=== PATIENT | female | born 1955 | race Caucasian/White ===

== ENCOUNTER → 2022-08-11 | Outpatient (CLI) | payer MEDICARE, SELFPAY | END | disposition home or self-care (01) | PROVIDERS: Visit Provider Nurse Practitioner | DX: R31.0 Gross hematuria (principal) | CPT/HCPCS: 87086; 87088 ==

== ENCOUNTER → 2025-04-08 | Outpatient (CLI) | payer MEDICARE, SELFPAY ==
[2025-04-08 22:01] LABS: Absolute Lymphocyte Count 1.68 X10^3/uL (0.83-4.51); Absolute Neutrophil Count 2.9 X10^3/uL (2.0-7.7); Basophil# 0.03 X10^3/uL; Basophil% 0.6 % (0-1); Eosinophils% 1.9 % (0-5); Hematocrit 42.2 % (37-47); Lymphocyte # 1.68 X10^3/ul (0.83-4.51); Lymphocyte % 32.3 % (19-41); Mean Corp Hgb Conc 33.2 g/dL (32-36); Mean Corpuscular Hgb 30.2 pg (27.0-32.0); Mean Corpuscular Volume 90.9 fL (81-99); Mean Platelet Vol. 12.2 fl (6.2-12.0); Monocyte# 0.46 X10^3/uL; Monocyte% 8.8 % (0-10); NRBC Flagged by Analyzer 0 % (0-5); Neutrophil # 2.91 X10^3/uL (2.7-7.7); Platelet Count 205 K/mm3 (150-450); RBC Distribution Width CV 13.2 % (11.6-14.6); RBC Distribution Width SD 43.8 fl (35.1-43.9); Red Blood Count 4.64 M/mm3 (4.2-5.4); White Blood Count 5.2 K/mm3 (4.4-11.0)
[2025-04-08 23:01] LABS: ALB/GLOB Ratio 1.7 RATIO (0.9-2.4); AST(SGOT) 23 U/L (<=31); Alanine Aminotransfer ALT/SGPT 18 U/L (<=34); Albumin, Serum 4.3 g/dL (3.4-4.8); Alkaline Phosphatase 86 U/L (35-104); Anion Gap 12 (5-15); BUN 15 mg/dL (4-19); Calcium,Total 9.2 mg/dL (7.6-11.0); Carbon Dioxide 21.2 mmol/L (21.0-32.0); Chloride 105 mmol/L (98-108); Cholesterol 222 mg/dL (<=200); Creatinine, Serum 0.77 mg/dL (0.70-1.20); EST Glomerular Filtration Rate 83 (>60); Globulin 2.5 g/dL (2.2-4.2); Glucose 101 mg/dL (70-99); High Density Lipoprotein 39 mg/dL; Low Density Lipoprotein Calc. 103 mg/dL; Potassium 4.1 mmol/L (3.3-5.1); Protein, Total 6.8 g/dL (5.9-8.4); Sodium Level 139 mmol/L (133-145); Total Bilirubin 0.27 mg/dL (0.00-1.30); Triglycerides 403 mg/dL; Very Low Density Lipoprotein 81 mg/dL (5-40); cholesterol:hdl ratio screen 5.72
== END | disposition home or self-care (01) ==
LOC: OLS.AHF 04-09 14:47 → LABSPEC 04-09 14:49
PROVIDERS: Visit Provider Nurse Practitioner
DX: E78.00 Pure hypercholesterolemia, unspecified (principal); D64.9 Anemia, unspecified
CPT/HCPCS: 80053; 80061; 85025

== ENCOUNTER → 2025-09-25 | Outpatient (CLI) | payer MEDICARE, SELFPAY ==
--- OUTSIDE RECORDS SUMMARY | 2025-09-25 21:54 | XMS RPT_ITS | CCD ---
Author Organization [facility] Care Team Providers Care Cotton Baler Name Role Phone GERALDINE LEGER Attending Unavailable VIRGINIA MAJOR Primary Care Unavailable Pedrito OLIVEIRACVirginia Attending Provider Virginia Major NP Attending Unavailable Medications Completed/Discontinued Medications Medication Drug Class(es) Dates Sig (Normalized) Sig (Original) azithromycin 250 mg oral tablet (3 sources) Macrolide Antimicrobial Start: 04-08-2025 End: 04-13-2025 take 2 tablets by mouth once daily, then take 1 tablet by mouth once daily at mealtime Azithromycin 250 mg tablet Discontinued 250 mg PO daily 6 5 0 April 08, 2025 4:15pm April 12, 2025 12:00am April 13, 2025 12:11am 2 po qd for 1 day then 1 po qd for 4 days with food or after eating Start: 01-09-2025 End: 01-14-2025 take 2 tablets by mouth once daily, then take 1 tablet by mouth once daily at mealtime Azithromycin 250 mg tablet Discontinued 250 mg PO daily 6 5 0 January 09, 2025 1:00am January 13, 2025 1:00am January 14, 2025 1:11am 2 po qd for 1 day then 1 po qd for 4 days with food or after eating Start: 12-06-2024 End: 12-11-2024 take 2 tablets by mouth once daily, then take 1 tablet by mouth once daily at mealtime Azithromycin 250 mg tablet Discontinued 250 mg PO daily 6 5 0 December 06, 2024 1:00am December 10, 2024 1:00am December 11, 2024 1:08am 2 po qd for 1 day then 1 po qd for 4 days with food or after eating ciprofloxacin 500 mg oral tablet (4 sources) Quinolone Antimicrobial Start: 08-11-2022 End: 12-06-2024 take 1 tablet by mouth twice daily Ciprofloxacin Hcl (Cipro) 500 mg tablet Discontinued 500 mg PO TWICE A DAY 14 0 August 11, 2022 12:00am December 06, 2024 5:06pm Start: 01-17-2019 End: 02-06-2020 take 1 tablet by mouth twice daily Ciprofloxacin Hcl (Cipro) 500 mg tablet Discontinued 500 mg PO TWICE A DAY 14 0 January 17, 2019 1:00am February 06, 2020 3:56pm clarithromycin 500 mg oral tablet (2 sources) Macrolide Antimicrobial Start: 11-26-2021 End: 08-11-2022 take 1 tablet by mouth twice daily Clarithromycin 500 mg tablet Discontinued 500 mg PO TWICE A DAY 20 0 November 26, 2021 1:00am August 11, 2022 4:48pm Problems Problem Classification Problem Date Documented Da te Episodic/Chronic Chronic obstructive pulmonary disease and bronchiectasis (1 source) Bronchitis; Translations: [Bronchitis, not specified as acute or chronic] 01-09-2025 Episodic Deficiency and other anemia (1 source) Anemia; Translations: [Anemia, unspecified] 04-08-2025 Episodic Disorders of lipid metabolism (2 sources) Increased cholesterol esters; Translations: [Pure hypercholesterolemi a, unspecified] Onset: 06-12-2025 04-08-2025 Chronic Essential hypertension (1 source) Essential (primary) hypertension; Translations: [Hypertension, unspecified type] Onset: 06-10-2025 Chronic Genitourinary symptoms and ill-defined conditions (2 sources) Kiran hematuria; Translations: [Gross hematuria] 01-17-2019 Episodic Other ear and sense organ disorders (2 sources) Pain of ear structure; Translations: [Otalgia, unspecified ear] 12-10-2021 Episodic Other ear and sense organ disorders (3 sources) Impacted cerumen; Translations: [Impacted cerumen, bilateral] 12-06-2024 Episodic Other injuries and conditions due to external causes (1 source) Unspecified injury of head, initial encounter; Translations: [Closed head injury, initial encounter] Onset: 06-10-2025 Episodic Other lower respiratory disease (2 sources) Cough; Translations: [Cough] 02-06-2020 Episodic Other upper respiratory infections (4 sources) Acute maxillary sinusitis; Translations: [Acute maxillary sinusitis, unspecified] 04-10-2025 Episodic Otitis media and related conditions (2 sources) Acute right otitis media; Translations: [Otitis media, unspecified, right ear] 12-06-2024 Episodic Skull and face fractures (1 source) Fracture of nasal bones, initial encounter for closed fracture; Translations: [Closed fracture of nasal bone, initial encounter] Onset: 06-10-2025 Episodic Urinary tract infections (2 sources) Cystitis; Translations: [Cystitis, unspecified without hematuria] 01-17-2019 Episodic Results Test Name Value Interpretation Reference Range Facility [facility] 06-10-2025 [facility] HNO ID: [id number] Author: MARLEEN MAURO RT(R) Service: Radiology Author Type: Technologist Type: Allied Health Filed: 06/10/2025 11:26 Note Text: Radiology Service Progress Note PATIENT NAME: Giovana Garland DATE OF SERVICE: June 10, 2025 TIME: 11:25 AM PATIENT IDENTITY VERIFICATION COMPLETED USING TWO (2) IDENTIFIERS: Name and Date of confirmed by patient verbally. FALL SCREENING: Has the patient had 2 falls in the last year or 1 fall with injury or currently using an Ambulatory Assistive Device (Walker, Cane, Wheelchair, Crutches, etc.)? Emergency Room Patient: Screened in ED PATIENT GENDER DATA: Assigned female at . status: : No status: NO. PATIENT RELEVANT IMPLANT DATA REVIEWED: Yes PATIENT PRESENTS WITH AN IMPLANTABLE OR ATTACHED WEB CONTENT & SOCIAL MEDIA MANAGER: No RADIOLOGY DEPARTMENT: CT; Exam(s) Completed: Brain , Face/Mandible, and Spine PERIPHERAL IV DATA: Not applicable SIGNED BY: Marleen Mauro RT(R) June 10, 2025 11:25 AM Normal [facility] CT BRAIN WO IVCONon 06-10-20 CT BRAIN WO IVCON * * *Final Report* * * DATE OF EXAM: Jun 10 2025 11:23AM [facility] 0504 - CT BRAIN WO IVCON / PROCEDURE REASON: Head trauma, moderate-severe * * * * Physician Interpretation * * * * EXAMINATION: CT BRAIN WO IVCON CLINICAL HISTORY: Fall, trauma TECHNIQUE: Serial axial images without IV contrast were obtained from the vertex to the foramen magnum. MQ: CTBWO_3 CT Radiation dose: Integrated Dose-Length Product (DLP) for this visit = 707.24 mGy*cm CT Dose Reduction Employed: No dose reduction techniques were required COMPARISON: None. RESULT: Localizer images: No additional findings. Post-operative change: None. Acute change: No evidence of an acute infarct or other acute parenchymal process. Hemorrhage: No evidence of acute intracranial hemorrhage. ECASS hemorrhagic transformation score: Not Applicable Mass Lesion / Mass Effect: There is no evidence of an intracranial mass or extraaxial fluid collection. No significant mass effect. Chronic change: None apparent. Parenchyma: There is no significant volume loss. The brain parenchyma is otherwise within normal limits for age. Ventricles: The ventricles are within normal limits of size and configuration for age. Paranasal sinuses and skull base: The visualized paranasal sinuses are grossly clear. The skull base and imaged soft tissues are unremarkable. IMPRESSION: No evidence of acute intracranial process. Security Delivery Specialist: [facility] Transcribe Date/Time: Jun 10 2025 11:24A Dictated by : BOB CHIN MD This examination was interpreted and the report reviewed and electronically signed by: BOB CHIN MD on Jun 10 2025 11:30AM EST [id number] Normal [facility] CT CERVICAL SPINE WO IVCONon 06-10-2025 CT CERVICAL SPINE WO IVCON * * *Final Report* * * DATE OF EXAM: Jun 10 2025 11:23AM [facility] 0505 - CT CERVICAL SPINE WO IVCON / PROCEDURE REASON: Neck trauma (Age >= 65y) * * * * Physician Interpretation * * * * EXAMINATION: CT CERVICAL SPINE WO IVCON CLINICAL HISTORY: Neck trauma (Age >= 65y) TECHNIQUE: Spiral, high resolution axial unenhanced images were obtained from the skull base to the cervicothoracic junction with sagittal and coronal planar reconstructions. MQ: CTCSPWO_5 CT Radiation dose: Integrated CT Dose-Length Product (DLP) for this visit = 190.39 mGy*cm CT Dose Reduction Employed: Automated exposure control(AEC) and iterative recon COMPARISON: None. RESULT: Counting reference: Craniocervical junction. Anatomic Variants: None. Performance Test Consultant (topogram) images: Alignment: Minimal retrolisthesis of C4 on C5 and C5 on C6. Minimal anterior listhesis of C7 on T1. These are all likely degenerative. Craniocervical junction: Craniocervical junction is normal. Osseous structures/fracture: No evidence of a lytic or blastic process in the visualized spine. No evidence of acute or chronic fracture. Cervical soft tissues: The paraspinal soft tissues are within normal limits. Degenerative changes: Severe disc space narrowing C4-C5, C5-C6 and C6-C7 levels. Multilevel facet joint degenerative changes. IMPRESSION: No fracture or dislocation. Multilevel degenerative changes as detailed. Anatomic Variant: None. Assume 7 cervical vertebrae with counting from the craniocervical junction. Security Delivery Specialist: [facility] Transcribe Date/Time: Jun 10 2025 11:30A Dictated by : BOB CHIN MD This examination was interpreted and the report reviewed and electronically signed by: BOB CHIN MD on Jun 10 2025 11:48AM EST [id number] Normal [facility] CT FACIAL BONE/STU WO IVCON on 06-10-2025 CT FACIAL BONE/STU WO IVCON * * *Final Report* * * DATE OF EXAM: Jun 10 2025 11:23AM [facility] 0507 - CT FACIAL BONE/STU WO IVCON / PROCEDURE REASON: Nasal fracture suspected * * * * Physician Interpretation * * * * EXAMINATION: CT FACIAL BONE/STU WO IVCON CLINICAL HISTORY: Nasal fracture suspected. Technique: Spiral high resolution axial unenhanced images were obtained through the facial bones with sagittal and coronal planar reconstructions. MQ: CTMFWO_1 CT Radiation dose: Integrated Dose-Length Product (DLP) for this visit = 380.17 mGy*cm. CT Dose Reduction Employed: Automated exposure control(AEC) and iterative recon COMPARISON: None. RESULT: Localizer images: No additional findings. Soft Tissues: Soft tissue edema along the nose. Right nasal piercing. Facial bones: Subtle cortical buckling of the nasal bone (604:48) could represent nondisplaced fracture or healed remote fracture. Orbits: No evidence of an acute fracture. The globes are intact. The soft tissue planes of the orbits are maintained. Paranasal Sinuses: Trace fluid in the dependent portion of both maxillary sinuses. Foreign Bodies: No evidence of radiopaque foreign bodies. Other: No evidence of a remote fracture. No lytic or blastic process seen in the facial bones. IMPRESSION: Soft tissue edema along the nose. Subtle cortical buckling along the nasal bone may represent nondisplaced fracture versus remote healed fracture. Security Delivery Specialist: TATI Transcribe Date/Time: Jun 10 2025 11:37A Dictated by : BOB CHIN MD This examination was interpreted and the report reviewed and electronically signed by: BOB CHIN MD on Jun 10 2025 11:47AM EST [id number] [facility] ED NOTEon 06-10-2025 ED NOTE HNO ID: [id number] Author: DORI MARTE RN Service: Emergency Medicine Author Type: Registered Nurse Type: ED Notes Filed: 06/11/2025 13:08 Note Text: Emergency Services: ED Call Back Questionnaire SERVICE DATE: 06/10/2025 Are you feeling better? Yes Any questions about discharge instructions and follow-up care? No Were you able to make a follow up appointment? No, referred to appointment hotline Do you have any further questions? No Is there anything that we could have done differently to improve your ED visit? No SIGNATURE: Dori Marte RN PATIENT NAME: Giovana Garland DATE: June 11, 2025 TIME: 1:08 PM [facility] ED NOTE HNO ID: [id number] Author: MARILEE WOOTEN RN Service: Emergency Medicine Author Type: Registered Nurse Type: ED Notes Filed: 06/10/2025 11:46 Note Text: Pt given PO fluid, reported off to Eliza MARTINEZ. [facility] ED PROV NOTEon 06-10-2025 ED PROV NOTE HNO ID: [id number] Author: GERALDINE LEGER MD Service: Emergency Medicine Author Type: Physician Type: ED Provider Notes Filed: 06/10/2025 13:04 Note Text: ED Provider Note Patient Name: Giovana Garland : 1955 SERVICE DATE: 06/10/25 History Patient presents with: Fall Nose Injury Patient is a 70-year-old female presenting to the emergency room for evaluation of fall and facial trauma. States that when she was getting up this morning she developed a cramp in her right calf. She typically gets these during the summer when she is out mowing, and has been treating them with luiz massage therapy and she was supposed to have an appointment with her masseuse today. When she got out of bed to help relieve the cramp she collapsed, falling and hitting her nose on the chair on the way down. She did not lose consciousness, but thinks that she instead had difficulty with her balance due to the cramp and coming down on a quilt. No chest pain or pressure. No dizziness or lightheadedness. Had bleeding from her nose that stopped after about 30 minutes. She has a headache, described as frontal. No difficulty with speech, swallowing, vision or double vision. No focal numbness or weakness. No blood thinners. She did take some Motrin for her pain. Pain is tolerable at this time though is noted by the patient. No other injuries and full range of motion of all of her other joints. No neck pain or stiffness. Denies other acute sick symptoms. She does note that her calf cramp is entirely resolved at this time. History reviewed. No pertinent past medical history. PAST SURGICAL HISTORY Procedure Laterality Date ORTHOPEDICS SURGERY HX No family history on file. Social History Tobacco Use Smoking status: Never Smokeless tobacco: Not on file Substance and Sexual Activity Alcohol use: Yes Drug use: Never Sexual activity: Not on file ALLERGIES No Known Allergies Review of Systems Constitutional: Negative for activity change, chills and fever. HENT: Positive for nosebleeds. Negative for dental problem, drooling, ear discharge, ear pain, trouble swallowing and voice change. Pain at the bridge of her nose Eyes: Negative for pain and discharge. Respiratory: Negative for cough and shortness of breath. Cardiovascular: Negative for chest pain and palpitations. Gastrointestinal: Negative for abdominal pain, diarrhea, nausea and vomiting. Genitourinary: Negative for dysuria and flank pain. Musculoskeletal: Negative for back pain and neck pain. Right calf spasm since resolved Skin: Negative for color change, rash and wound. Neurological: Positive for headaches. Negative for dizziness, seizures, syncope, weakness and numbness. Psychiatric/Behavioral : Negative for self-injury and suicidal ideas. Physical Exam Vitals [06/10/25 1033] BP Pulse Temp Temp src Resp SpO2 Weight Height 188/91 87 (!) 35.7 ?C (96.2 ?F) -- 20 99 % 61.2 kg (135 lb) -- Physical Exam Vitals and nursing note reviewed. Constitutional: General: She is not in acute distress. Appearance: She is well-developed. She is not diaphoretic. HENT: Head: Normocephalic. Comments: Bruising and mild swelling to the bridge of patient's nose. No septal hematoma. No hemotympanum. No midface instability. Small amount of dried blood in bilateral naris, with no active epistaxis Right Ear: Tympanic membrane and external ear normal. Left Ear: Tympanic membrane and external ear normal. Nose: Nose normal. Mouth/Throat: Mouth: Mucous membranes are moist. Pharynx: No oropharyngeal exudate or posterior oropharyngeal erythema. Comments: No posterior oropharynx swelling or exudate. Uvula midline without edema. No drooling or dysphonia. No woody induration underneath the tongue. Tongue is midline without elevation. Eyes: General: No scleral icterus. Right eye: No discharge. Left eye: No discharge. Pupils: Pupils are equal, round, and reactive to light. Neck: Comments: No midline C-spine tenderness to palpation. No crepitus deformity or step-offs Cardiovascular: Rate and Rhythm: Normal rate and regular rhythm. Heart sounds: Normal heart sounds. No murmur heard. No friction rub. No gallop. Pulmonary: Effort: Pulmonary effort is normal. No respiratory distress. Breath sounds: Normal breath sounds. No stridor. No wheezing or rales. Chest: Chest wall: No tenderness. Abdominal: Palpations: Abdomen is soft. Tenderness: There is no abdominal tenderness. There is no guarding. Musculoskeletal: General: No tenderness or deformity. Normal range of motion. Cervical back: Normal range of motion and neck supple. Skin: General: Skin is warm and dry. Capillary Refill: Capillary refill takes less than 2 seconds. Findings: No rash. Neurological: General: No focal deficit present. Mental Status: She is alert and oriented to person, place, and time. Cranial Nerves: No cranial nerve defici (more content not included)... Normal [facility] Absolute lymphocyte countOrd ered By: Virginia Major on 04-08-2025 Lymphocytes Auto (Unsp spec) [#/Vol] 1.68 10*3/uL 0.83-4.51 [facility] Absolute neutrophil countOrd ered By: Virginia Major on 04-08-2025 Neutrophils (Bld) [#/Vol] 2.9 10*3/uL 2.0-7.7 [facility] Anion gap in Serum or Plasma Ordered By: Virginia Major on 04-08-2025 Anion gap [Moles/Vol] 12 mmol/L 5-15 [facility] Automated lymphocyte count a s percentage of total leukocytesOrdered By: Virginia Major on 04-08-2025 Lymphocytes/100 WBC Auto (Unsp spec) 32.3 % 19-41 [facility] BUN/creatinine ratioOrdered By: Virginia Major on 04-08-2025 Urea nitrogen/Creatinine [Mass ratio] 20.0 mg/mg 10-20 [facility] Basophil percentageOrdered B y: Vriginia Major on 04-08-2025 Basophils/100 WBC (Bld) 0.6 % 0-1 [facility] Bilirubin, totalOrdered By: Virginia Major on 04-08-2025 Bilirubin [Mass/Vol] 0.27 mg/dL 0.00-1.30 [facility] Calculated very low density lipoprotein (VLDL) cholesterol measurementOrdered By: Virginia Major on 04-08-2025 Calculated very low density lipoprotein (VLDL) cholesterol measurement 81 mg/dL High 5-40 [facility] Carbon dioxide, total [Moles /volume] in Central venous bloodOrdered By: Virginia Major on 04-08-2025 CO2 [Moles/Vol] 21.2 mmol/L 21.0-32.0 [facility] Chloride assayOrdered By: Do ra Major on 04-08-2025 Chloride [Moles/Vol] 105 mmol/L 98-108 [facility] Eosinophil percentageOrdered By: Virginia Major on 04-08-2025 Eosinophils/100 WBC (Bld) 1.9 % 0-5 [facility] Erythrocyte distribution wid th ratioOrdered By: Virginia Major on 04-08-2025 Erythrocyte distribution width (RBC) [Ratio] 13.2 % 11.6-14.6 [facility] Erythrocyte distribution wid th standard deviationOrdered By: Virginia Major on 04-08-2025 Erythrocyte distribution width (RBC) [Ratio] 43.8 fl 35.1-43.9 [facility] Glomerular filtration rate ( GFR) estimation/1.73 sq m using serum, plasma, or whole bOrdered By: Virginia Major on 04-08-2025 GFR/1.73 sq M.predicted among non-blacks MDRD (S/P/Bld) [Vol rate/Area] 83 mL/min/{1.73_m2} >60 [facility] Comment on above: mL/min/1.73m2 CKD-EP I Creatinine Equation (2020) Hematocrit Auto (Bld) [Volum e fraction]Ordered By: Virginia Major on 04-08-2025 Hematocrit (Bld) [Volume fraction] 42.2 % 37-47 [facility] Hemoglobin measurementOrdere d By: Virginia Major on 04-08-2025 Hemoglobin (Bld) [Mass/Vol] 14.0 g/dL 12.0-15.0 [facility] Immature granulocytes/100 WB C Auto (Bld)Ordered By: Virginia Major on 04-08-2025 Immature granulocytes/100 WBC (Bld) 0.400 % 0.0-0.9 [facility] Comment on above: IG% - Immature Granu locytes (promyelocytes, myelocytes and metamyelocytes) > 1% indicates that a LEFT SHIFT is Present. LDL calc ser/plasOrdered By: Virginia Major on 04-08-2025 Cholesterol in LDL [Mass/Vol] 103 mg/dL [facility] Comment on above: Jqcgmkclvi=732-568 m g/dL & Higher Nfko=506 mg/dL or greater Laboratory - Chemistry and C hemistry - challengeOrdered By: Virginia Major on 04-08-2025 AST [Catalytic activity/Vol] 23 U/L <32 [facility] MCV (mean corpuscular volume ) determinationOrdered By: Virginia Major on 04-08-2025 MCV (RBC) [Entitic vol] 90.9 fL 81-99 [facility] Mean corpuscular hemoglobin (MCH) determinationOrdered By: Virginia Major on 04-08-2025 MCH (RBC) [Entitic mass] 30.2 pg 27.0-32.0 [facility] Mean corpuscular hemoglobin concentration (MCHC) determinationOrdered By: Virginia Major on 04-08-2025 MCHC (RBC) [Mass/Vol] 33.2 g/dL 32-36 [facility] Mean platelet volume determi nationOrdered By: Virginia Major on 04-08-2025 Platelet mean volume (Bld) [Entitic vol] 12.2 fL High 6.2-12.0 [facility] Monocyte percentageOrdered B y: Virginia Major on 04-08-2025 Monocytes/100 WBC (Bld) 8.8 % 0-10 [facility] Neutrophil percentageOrdered By: Virginia Major on 04-08-2025 Neutrophils/100 WBC (Bld) 56.0 % 47-70 [facility] Nucleated red blood cell per centageOrdered By: Virginia Major on 04-08-2025 Nucleated RBC/100 WBC (Bld) [Ratio] 0 % 0-5 [facility] Platelet countOrdered By: Do ra Major on 04-08-2025 Platelets (Bld) [#/Vol] 205 10*3/uL 150-450 [facility] Potassium measurement (mass/ volume)Ordered By: Virginia Major on 04-08-2025 Potassium (Unsp spec) [Mass/Vol] 4.1 mmol/L 3.3-5.1 [facility] RBC Auto (Bld) [#/Vol]Ordere d By: Virginia Major on 04-08-2025 RBC (Bld) [#/Vol] 4.64 10*6/uL 4.2-5.4 [facility] Screening total cholesterol/ high density lipoprotein (HDL) cholesterol ratioOrdered By: Virginia Major on 04-08-2025 Cholesterol.total/Choles terol in HDL [Mass ratio] 5.72 {ratio} [facility] Serum creatinine measurement (mass/volume)Ordered By: Virginia Major on 04-08-2025 Creatinine [Mass/Vol] 0.77 mg/dL 0.70-1.20 [facility] Serum globulin measurementOr dered By: Virginia Major on 04-08-2025 Globulin (S) [Mass/Vol] 2.5 g/dL 2.2-4.2 [facility] Serum glucose measurement (m ass/volume)Ordered By: Virginia Major on 04-08-2025 Glucose [Mass/Vol] 101 mg/dL High 70-99 [facility] Serum or plasma alanine sparks otransferase (ALT) measurementOrdered By: Virginia Major on 04-08-2025 ALT [Catalytic activity/Vol] 18 U/L <35 [facility] Serum or plasma albumin neeta urement (mass/volume)Ordered By: Virginia Major on 04-08-2025 Albumin [Mass/Vol] 4.3 g/dL 3.4-4.8 [facility] Serum or plasma albumin/glob ulin mass ratioOrdered By: Virginia Major on 04-08-2025 Albumin/Globulin [Mass ratio] 1.7 {ratio} 0.9-2.4 [facility] Serum or plasma alkaline simone sphatase measurementOrdered By: Virginia Major on 04-08-2025 ALP [Catalytic activity/Vol] 86 U/L 35-104 [facility] Serum or plasma calcium neeta urement (mass/volume)Ordered By: Virginia Major on 04-08-2025 Calcium [Mass/Vol] 9.2 mg/dL 7.6-11.0 [facility] Serum or plasma cholesterol in HDL measurement (mass/volume)Ordered By: Virginia Major on 04-08-2025 Cholesterol in HDL [Mass/Vol] 39 mg/dL Low >40 [facility] Comment on above: National Cholesterol Education Program (NCEP) guidelines:<40 mg/dL: Low HDL-cholesterol (major risk factor for CHD)>= 60 mg/dL: High HDL-cholesterol (negative risk factor for CHD)HDL-cholesterol is affected by a number of factors, e.g. smoking, exercise, hormones, sex and age. Serum or plasma cholesterol measurement (mass/volume)Ordered By: Virginia Major on 04-08-2025 Cholesterol [Mass/Vol] 222 mg/dL High <201 [facility] Comment on above: Cholesterol level, D esirable <200 mg/dLBorderline high cholesterol 200-239 mg/dLHigh cholesterol >=240 mg/dLRecommendations of the NCEP Adult Treatment Panel for the following risk-cutoff thresholds for the [place] population. Serum or plasma urea nitroge n measurement (mass/volume)Ordered By: Virginia Major on 04-08-2025 Urea nitrogen [Mass/Vol] 15 mg/dL 4-19 [facility] Sodium levelOrdered By: Virginia Major on 05-27-2025 Sodium [Moles/Vol] 139 mmol/L 133-145 [facility] Total proteinOrdered By: Jose Major on 04-08-2025 Protein [Mass/Vol] 6.8 g/dL 5.9-8.4 [facility] Triglycerides measurementOrd ered By: Virginia Major on 04-08-2025 Triglyceride [Mass/Vol] 403 mg/dL High <199 [facility] Comment on above: The drugs N-Acetylcy steine and Metamizole may falsely depress this assay. Normal range: <150 mg/dLBorderline High: 150-199 mg/dLHigh: 200-499 mg/dLVery High: >500 mg/dL White blood cell (WBC) count Ordered By: Virginia Major on 04-08-2025 WBC (Bld) [#/Vol] 5.2 10*3/uL 4.4-11.0 [facility] Laboratory - Chemistry and C hemistry - challengeon 08-11-2022 Bilirubin Ql (U) Negative [facility] Work Phone: Ketones Ql (U) Negative [facility] Work Phone: pH (U) 5.5 [pH] [facility] Work Phone: Specific gravity (U) [Rel density] 1.010 [facility] Work Phone: Urobilinogen (U) [Mass/Vol] 0.1191886 mg/dL [facility] Work Phone: Laboratory - Hematology and Cell countson 08-11-2022 Hemoglobin Ql (U) Large [facility] Work Phone: Laboratory - Specimen inform ationon 08-11-2022 Clarity (U) Clear [facility] Work Phone: Color (U) RED [facility] Work Phone: Laboratory - Urinalysison Nitrite Ql (U) Negative [facility] Work Phone: Protein Ql (U) 2+ [facility] Work Phone: No Panel Informationon 08-11 Urine Leukocytes Positive [facility] Work Phone: Urine Non-Hemolyzed Blood [facility] Work Phone: Factor V Leiden PCRon 2017 FV Leiden Report Normal [facility] Comment on above: Result Comment: (NOT E) Performing Pathologist: Price Maravilla M.D. Factor V Leiden MutationResult: NORMAL Interpretation: The patient is negative for the Factor VLeiden, the Arginine 506/Glutamine 506 genetic polymorphism. The Factor VLeiden assay may fail to detect less than 5% of individuals with activatedprotein C resistance who do not have the Arginine 506/Glutamine 506 pointmutation.This may be detected by ordering the functional assay for ActivatedProtein C Resistance. Other causes of thromboembolic disease are not ruled outby a normal Factor V Leiden result. Method: This assay was performed bypolymerase chain reaction and fluorescence monitoring using hybridizationprobes. Performed By: #### C BCDIF, BMP, FIBCT, PT, PTT ####[facility] [id number] [place] [address] [phone] APTTon 12-12-2017 aPTT 28.2 s Normal 23.0-32.4 [facility] Comment on above: Performed By: #### C BCDIF, BMP, FIBCT, PT, PTT ####[address] [phone] Basic Metabolic Panlon 12-12 Anion gap 14 mmol/L Normal 9-18 [facility] Comment on above: Performed By: #### C BCDIF, BMP, FIBCT, PT, PTT ####[address] [phone] Calcium 9.5 mg/dL Normal 8.5-10.2 [facility] Comment on above: Performed By: #### C BCDIF, BMP, FIBCT, PT, PTT ####[facility] [id number] [place] [address] [phone] Chloride 102 mmol/L Normal 97-105 [facility] Comment on above: Performed By: #### C BCDIF, BMP, FIBCT, PT, PTT ####[place] [phone] CO2 25 mmol/L Normal 22-30 [facility] Comment on above: Performed By: #### C BCDIF, BMP, FIBCT, PT, PTT ####[place] [phone] Creatinine 0.83 mg/dL Normal 0.58-0.96 [facility] Comment on above: Performed By: #### C BCDIF, BMP, FIBCT, PT, PTT ####[place] [phone] eGFR (non-black) mL/min/{1.73_m2} Normal [facility] Comment on above: Performed By: #### C BCDIF, BMP, FIBCT, PT, PTT ####[place] [phone] Glucose mass conc 99 mg/dL Normal 74-99 [facility] Comment on above: Performed By: #### C BCDIF, BMP, FIBCT, PT, PTT ####[place] [phone] Potassium molar conc 4.2 mmol/L Normal 3.7-5.1 [facility] Comment on above: Performed By: #### C BCDIF, BMP, FIBCT, PT, PTT ####[place] [phone] Sodium 141 mmol/L Normal 136-144 [facility] Comment on above: Performed By: #### C BCDIF, BMP, FIBCT, PT, PTT ####[address], [place] [phone] Urea nitrogen 9 mg/dL Normal 7-21 [facility] Comment on above: Performed By: #### C BCDIF, BMP, FIBCT, PT, PTT ####[address] [place] [place] [phone] CBC and Differentialon 12-12 Abs Baso 0.03 k/uL Normal <0.11 [facility] Comment on above: Performed By: #### C BCDIF, BMP, FIBCT, PT, PTT ####[phone] Abs Vigo 0.35 k/uL Normal <0.87 [facility] Comment on above: Performed By: #### C BCDIF, BMP, FIBCT, PT, PTT ####[phone] Abs Neut 2.66 k/uL Normal 1.45-7.50 [facility] Comment on above: Performed By: #### C BCDIF, BMP, FIBCT, PT, PTT ####[place] [phone] Basophils/100 WBC Auto (Bld) 0.7 % Normal [facility] Comment on above: Performed By: #### C BCDIF, BMP, FIBCT, PT, PTT ####[address] [place] [phone] DTYPE ADIFF Normal [facility] Comment on above: Performed By: #### C BCDIF, BMP, FIBCT, PT, PTT ####[address] [place] [phone] Eosinophils 0.10 10*3/uL Normal <0.46 [facility] Comment on above: Performed By: #### C BCDIF, BMP, FIBCT, PT, PTT ####[facility] [address] [place] [phone] Eosinophils/100 leukocytes 2.3 % Normal [facility] Comment on above: Performed By: #### C BCDIF, BMP, FIBCT, PT, PTT ####[facility] [address] [place] [phone] Erythrocyte distribution width Auto Ratio (RBC) 12.5 % Normal 11.5-15.0 [facility] Comment on above: Performed By: #### C BCDIF, BMP, FIBCT, PT, PTT ####[place] [address] [address] [place] [phone] Erythrocytes (RBC) 4.82 10*6/uL Normal 3.90-5.20 [facility] Comment on above: Performed By: #### C BCDIF, BMP, FIBCT, PT, PTT ####[place] [address] [address] [place] [phone] Erythrocytes (RBC) 10*6/uL Normal <0.01 [facility] Lab Comment on above: Performed By: #### C BCDIF, BMP, FIBCT, PT, PTT ####[place] [address] [address] [place] [phone] Erythrocytes (RBC) 0.0 /[address] [facility] Comment on above: Performed By: #### C BCDIF, BMP, FIBCT, PT, PTT ####[facility] [address] [place] [phone] Hematocrit (HCT) 45.2 % Normal 36.0-46.0 [facility] Comment on above: Performed By: #### C BCDIF, BMP, FIBCT, PT, PTT ####[facility] [id number]ic[address] [place] [phone] Hemoglobin mass conc (Bld) 14.6 g/dL Normal 11.5-15.5 [facility] Comment on above: Performed By: #### C BCDIF, BMP, FIBCT, PT, PTT ####[phone] Lymphocytes 1.17 10*3/uL Normal 1.00-4.00 [facility] Comment on above: Performed By: #### C BCDIF, BMP, FIBCT, PT, PTT ####[address] [place] [phone] Lymphocytes/100 leukocytes 27.1 % Normal [facility] Comment on above: Performed By: #### C BCDIF, BMP, FIBCT, PT, PTT ####[phone] MCH 30.3 pG Normal 26.0-34.0 [facility] Comment on above: Performed By: #### C BCDIF, BMP, FIBCT, PT, PTT ####[phone] MCHC mass conc (RBC) 32.3 g/dL Normal 30.5-36.0 [facility] Comment on above: Performed By: #### C BCDIF, BMP, FIBCT, PT, PTT ####[address] [place] [phone] MCV 93.8 fL Normal 80.0-100.0 [facility] Comment on above: Performed By: #### C BCDIF, BMP, FIBCT, PT, PTT ####[place] [address] [address] [place] [phone] Monocytes/100 leukocytes 8.1 % Normal [facility] Comment on above: Performed By: #### C BCDIF, BMP, FIBCT, PT, PTT ####[address] [place], [place] [phone] Neutrophils/100 WBC Auto (Bld) 61.8 % Normal [facility] Comment on above: Performed By: #### C BCDIF, BMP, FIBCT, PT, PTT ####[address] [place], [place] [phone] Platelet mean volume (PMV) 11.0 fL Normal 9.0-12.7 [facility] Comment on above: Performed By: #### C BCDIF, BMP, FIBCT, PT, PTT ####[address] [phone] Platelets 197 10*3/uL Normal 150-400 [facility] Comment on above: Performed By: #### C BCDIF, BMP, FIBCT, PT, PTT ####[address] [phone] WBC (Leukocytes) 4.32 10*3/uL Normal 3.70-11.00 [facility] Comment on above: Performed By: #### C BCDIF, BMP, FIBCT, PT, PTT ####[address] [phone] Fibrinogenon 12-12-2017 Fibrinogen 266 mg/dL Normal 200-400 [facility] Comment on above: Performed By: #### C BCDIF, BMP, FIBCT, PT, PTT ####[address] [phone] Protimeon 12-12-2017 INR Coag RelTime (PPP) 1.0 {INR} Normal 0.9-1.3 [facility] Comment on above: Performed By: #### C BCDIF, BMP, FIBCT, PT, PTT ####[address] [place] [phone] PT Sec 9.9 sec Normal 9.7-13.0 [facility] Comment on above: Performed By: #### C BCDIF, BMP, FIBCT, PT, PTT ####[facility] [id number] [place], [place] [phone] Culture, urine Bacteria identified Cx Nom (U) Mixed Gram Pos & Gram Neg Org [facility] Work Phone: Vital Signs Date Time Vital Sign Value Performing Clinician Faci lity 04-08-2025 16:16-0400 Body height 158.75 cm Virginia Major AUTOMATION MANAGER-C Work Phone: [facility] 04-08-2025 16:16-0400 Body mass index (BMI) [Ratio] 26.4 kg/m2 Virginia Major AUTOMATION MANAGER-C Work Phone: [facility] 04-08-2025 16:16-0400 Body temperature 97.7 [degF] Virginia Major AUTOMATION MANAGER-C Work Phone: [facility] 04-08-2025 16:16-0400 Body weight 66.67 kg Virginia Major AUTOMATION MANAGER-C Work Phone: [facility] 04-08-2025 16:16-0400 Diastolic blood pressure 60 mm[Hg] Virginia Major AUTOMATION MANAGER-C Work Phone: [facility] 04-08-2025 16:16-0400 Heart rate 68 /min Virginia Major AUTOMATION MANAGER-C Work Phone: [facility] 04-08-2025 16:16-0400 Respiratory rate 18 /min Virginia Major AUTOMATION MANAGER-C Work Phone: [facility] 04-08-2025 16:16-0400 SaO2% (BldA) [Mass fraction] 98 % Virginia Major AUTOMATION MANAGER-C Work Phone: [facility] 04-08-2025 16:16-0400 Systolic blood pressure 115 mm[Hg] Virginia Major AUTOMATION MANAGER-C Work Phone: [facility] 08-11-2022 16:47-0400 Body height 158.75 cm [facility] Work Phone: 08-11-2022 16:47-0400 Body mass index (BMI) [Ratio] 26.1 kg/m2 [facility] Work Phone: 08-11-2022 16:47-0400 Body temperature 97.2 [degF] [facility] Work Phone: 08-11-2022 16:47-0400 Body weight 65.77 kg [facility] Work Phone: 08-11-2022 16:47-0400 Diastolic blood pressure 80 mm[Hg] [facility] Work Phone: 08-11-2022 16:47-0400 Heart rate 74 /min [facility] Work Phone: 08-11-2022 16:47-0400 Respiratory rate 18 /min [facility] Work Phone: 08-11-2022 16:47-0400 SaO2% (BldA) [Mass fraction] 98 % [facility] Work Phone: 08-11-2022 16:47-0400 Systolic blood pressure 148 mm[Hg] [facility] Work Phone: Encounters Encounter Date Encounter Type Care Provider Facility Start: 06-10-2025 End: 06-10-2025 Emergency department patient visit GERALDINE LEGER Facility:[facility] Start: 04-08-2025 End: 04-08-2025 ambulatory Virginia Major AUTOMATION MANAGERNilsC Work Phone: -Laboratory Specimen Start: 04-08-2025 End: 04-08-2025 Patient encounter procedure Virginia OLIVEIRAC -Laboratory Specimen Work Phone: Start: 04-08-2025 End: 04-08-2025 ambulatory Virginia Major AUTOMATION MANAGER Facility:[facility] Start: 08-11-2022 End: 08-11-2022 ambulatory [facility] Work Phone: Start: 08-11-2022 End: 08-11-2022 Patient encounter procedure [facility]-Laboratory, Specimen Procedures Date Procedure Procedure Detail Performing Clinician Urine culture Payers Date Payer Category Payer Self-pay [id number] 2024 Medicare [id number] Medicare MEDICARE PART A B [id number] Unknown [id number] Unknown [id number] Social History Date Type Detail Facility Start: 02-06-2020 Tobacco smoking stat [facility] Unknown if ever smoked [facility] Work Phone: Start: 1955 Sex Assigned At Female [facility] Start: 02-06-2020 [facility] Evaluation note 04-08-2025 Note Date & Type Note Facility 04-08-2025 Evaluation note Diagnosis Onset Date Resolution Maxillary sinusitis, acute acute April 08, 2025 3 :55pm Right acute otitis media acute April 08, 2025 3 :55pm [facility] Work Phone: Evaluation note Note Date & Type Note Facility Evaluation note Diagnosis Onset Date Cystitis acute Hematuria, gross acute [facility] Work Phone: Reason for referral (narrative) Note Date & Type Note Facility Reason for referral (narrative) No reason for referral information available [facility] Work Phone: Summary Purpose Family History No Family History Records Found Relationship Condition Age at Onset Recorded Date/T sean Not Specified Myocardial infarction Unknown father Cerebrovascular accident (CVA) Unknown Hypertension Unknown Malignant neoplasm of colon Unknown brother Kidney disorder Unknown mother Disorder of thyroid Unknown Advance Directives No Advanced Directives Records FoundNo Advanced Directives Records FoundNo Advanced Directives Records Found Chief Complaint and Reason for Visit Chief Complaint Urinary tract infect ion/Bladder Reason for Visit Cystitis Hematuria, gross Chief Complaint Admit Date Sinus infection/Cough/ears April 08 3:55pm Reason for Visit Admit Date Maxillary sinusitis, acute April 08 3:55pm Right acute otitis media April 08, 2025 3:55pm Additional Source Comments INFORMATION SOURCE (unrecogn ized section and content) DATE CREATED AUTHOR 05/07/2018 [facility] DATE CREATED AUTHOR AUTHOR'S ORGANIZ ATION 06/11/2025 [facility] DATE CREATED AUTHOR AUTHOR'S ORGANIZ ATION 06/14/2025 [facility] Goals (unrecognized section and content) Goals may be documented in a n alternate sectionGoals may be documented in an alternate section Care Teams (unrecognized sec tion and content) Team Status: Inactive Member Role/Relationship Status Dates Virginia Major NP, AUTOMATION MANAGER-C Attending Provider Active Start: April 08, 2025 End: April 08, 2025 Team Status: Inactive Member Role/Relationship Status Dates Virginia Major NP, AUTOMATION MANAGER-C Attending Provider Active Start: April 08, 2025 End: April 08, 2025 FOR RECORDS PERTAINING TO PATIENTS WHO ARE OR HAVE BEEN ENROLLED IN A CHEMICAL DEPENDENCY/SUBSTANCEABUSE PROGRAM, SOME INFORMATION MAY BE OMITTED. This clinical summary was aggregated from multiple sources. Caution should be exercised in using it in the provision of clinical care. This summary normalizes information from multiple sources, and as a consequence, information in this document may materially change the coding, format and clinical context of patient data. In addition, data may be omitted in some cases. CLINICAL DECISIONS SHOULD BE BASED ON THE PRIMARY CLINICAL RECORDS. [facility] [employer] [facility] provides no warranty or guarantee of the accuracy or completeness of information in this document.
[2025-09-25 22:45] LABS: Cholesterol 261 mg/dL (<=200); Low Density Lipoprotein Calc. 184 mg/dL; Triglycerides 104 mg/dL; Very Low Density Lipoprotein 21 mg/dL (5-40); cholesterol:hdl ratio screen 4.46
== END | disposition home or self-care (01) ==
PROVIDERS: PCP Nurse Practitioner; Referring Provider Nurse Practitioner; Visit Provider Nurse Practitioner
DX: E78.00 Pure hypercholesterolemia, unspecified (principal)
CPT/HCPCS: 80061